=== PATIENT | male | born 1955 | race Caucasian/White ===

== ENCOUNTER 2019-01-29 13:40 | Emergency (ER) | payer SELFPAY ==
[2019-01-29 13:40] VITALS: TEMP -17.7; TEMP 0; BMI 23.6
--- NOTE | 2019-01-29 13:47 | ED.VIS.GEN ---
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 Patient's identity, past medical history, medical location unknown - Past Medical History (1) Unknown cause of morbidity or mortality Status: Acute Past Medical History Primary Care Physician: Care Physician,No Primary [Primary Care Provider] - Prior records reviewed: No Smoking Status: Current every day smoker Alcohol: Occasional Review of Systems ROS: Unable to Obtain - Significant other who is the POA states he did not appear his normal self while mowing the yard. He informed her that he was doing well. Physical Exam Inital Vital Signs reviewed: Yes General: Well nourished, Well developed Head: Normocephalic, Atraumatic Eyes: - - Pupils 4 mm size and nonreactive. Negative for: Pale conjunctiva, Scleral icterus ENT: No rhinorrhea Neck: Supple, No lymphadenopathy Cardiovascular: - - No heart tones noted Respiratory: - - Gel tube in place for ventilation. Breath sounds noted bilaterally Abdomen: Soft Skin: Cyanosis Neurological: - - GCS 3 T Diagnostic/Tx/Re-eval - Medical Decision Making Patient arrived with wide-complex rhythm noted on monitor. Transthoracic cardio echocardiography was performed with no heart activity noted. There is no evidence of pericardial effusion. Algorithm for PEA was continued. He received a dose of epinephrine and 2 A of bicarb for presumed metabolic acidosis. During resuscitation I was informed that the call went out at 09/28/2003. There was no initial CPR. With downtime of greater than 40 minutes fixed pupils no cardiac activity patient was pronounced at 1345. Spoke with significant other who is the POA. He states he is a healthy gentleman. He apparently does smoke and drink. He does not have a doctor and has not seen a doctor in decades. Procedures Procedure(s): Transthoracic cardio echocardiography to assess heart activity. No heart activity was noted. There is no evidence of pericardial effusion. ED Disposition - Plan for ED Patient: Diagnosis: Cardiopulmonary arrest, PEA (Pulseless electrical activity) Referrals: Care Physician,No Primary [Primary Care Provider] -
--- NOTE | 2019-01-29 13:52 | ED.DCSUM_ITS ---
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 Patient's identity, past medical history, medical location unknown - Past Medical History (1) Unknown cause of morbidity or mortality Status: Acute Past Medical History Primary Care Physician: Care Physician,No Primary [Primary Care Provider] - Prior records reviewed: No Smoking Status: Current every day smoker Alcohol: Occasional Review of Systems ROS: Unable to Obtain - Significant other who is the POA states he did not a ppear his normal self while mowing the yard. He informed her that he was doing well. Physical Exam Inital Vital Signs reviewed: Yes General: Well nourished, Well developed Head: Normocephalic, Atraumatic Eyes: - - Pupils 4 mm size and nonreactive. Negative for: Pale conjunctiva, Scl eral icterus ENT: No rhinorrhea Neck: Supple, No lymphadenopathy Cardiovascular: - - No heart tones noted Respiratory: - - Gel tube in place for ventilation. Breath sounds noted bilaterally Abdomen: Soft Skin: Cyanosis Neurological: - - GCS 3 T Diagnostic/Tx/Re-eval - Medical Decision Making Patient arrived with wide-complex rhythm noted on monitor. Transthoracic cardio echocardiography was performed with no heart activity noted. There is no evidence of pericardial effusion. Algorithm for PEA was continued. He received a dose of epinephrine and 2 A of bicarb for presumed metabolic acidosis. During resuscitation I was informed that the call went out at 09/28/2003. There was no initial CPR. With downtime of greater than 40 minutes fixed pupils no cardiac activity patient was pronounced at 1345. Spoke with significant other who is the POA. He states he is a healthy gentleman. He apparently does smoke and drink. He does not have a doctor and has not seen a doctor in decades. Procedures Procedure(s): Transthoracic cardio echocardiography to assess heart activity. No heart activity was noted. There is no evidence of pericardial effusion. ED Disposition - Plan for ED Patient: Diagnosis: Cardiopulmonary arrest, PEA (Pulseless electrical activity) Referrals: Care Physician,No Primary [Primary Care Provider] -
[2019-01-29 14:08] VITALS: BP 179/92
--- NOTE | 2019-01-29 15:00 | CHAPLAIN ---
Type of Pastoral Visit ___ Initial Visit ___ Follow-up Visit ___ On-call Visit ___ General Patient Visit ___ Spiritual Assessment ___ Family Conference ___ Bereavement ___ Rapid Response _x__ Code Blue ___ Other (describe below) Pastoral Care Referral From ___ Patient ___ Family ___ Nurse ___ Physician ___ Thread Marker ___ Manual Arts Therapist _x__ Other (describe below) Sacrament/Intervention ___ Active listening ___ Anointing ___ Adventist _x__ Bereavement ___ Communion ___ Vanita exploration ___ ___ Life review ___ Prayer ___ Reconciliation ___ Sacrament of Sick ___ Supportive presence ___ Wedding _x__ Other (describe below) Pastoral Comments was present when patient when pronounced ; met SO when she arrived and informed DR of her presence so he could explain situation and ; gave presence to SO while she waited for her family members to arrive; SO states that there are no family members for pt; SO states that pt does not have a connection to any vanita but accepts emotional support; escorted SO and her granddaughter into trauma room 1 and stayed with them as they said their goodbyes;
== END 2019-01-29 16:13 ==
PROVIDERS: Emergency Provider Emergency Medicine
DX: I46.9 Cardiac arrest, cause unspecified (principal); F17.200 Nicotine dependence, unspecified, uncomplicated
CPT/HCPCS: 92950; J7030; A4216